=== PATIENT | female | born 1965 | race Caucasian/White ===

== ENCOUNTER 2017-10-03 10:36 | Emergency (ER) | payer OTHER ==
[~2017-10-03] VITALS: Ht 172.7 cm; Wt 63.5 kg
[~2017-10-03 10:36] MED LIST: ADVAIR 250-501 EACH INH; ALBUTEROL0.63 MG/1 INH/SOL; ALBUTEROL2.5 MG/3 M INH; BACTRIM DS TAB1 EACH PO; CHERATUSSIN AC118 M1 PO; IPRATROPIU0.2 MG/1 M INH; LEVAQUIN500 M1 PO; MONTELUKAST SOD10 M1 PO; PERCOCET 5-3251 EACH PO; PREDNISONE10 M2 PO; PREDNISONE20 M1 PO; QVAR0.08 MG/Ac; REGLAN10 MG PO; SYMBICORT 16010.2 GM INH; VENTOLIN HFA18 GM INH
[2017-10-03 10:43] VITALS: BP 133/84
--- NOTE | 2017-10-03 11:05 | ED SKIN/ALLERGY COMPLAINT ---
History of Present Illness General Chief Complaint: Suture Removal/Wound Recheck Stated Complaint: WOUNDCHECK Source: patient, old records Exam Limitations: no limitations Vital Signs & Intake/Output Vital Signs & Intake/Output Vital Signs Date Time Temp Pulse Resp B/P B/P Pulse O2 O2 Flow FiO2 Mean Ox Delivery Rate 10/03 1043 96.7 83 20 133/84 96 Room Air Allergies Coded Allergies: crab (Severe, ANAPHYLAXIS 06/03/17) Penicillins (Intermediate, RASH/HIVES 06/03/17) Reconcile Medications Albuterol Sulfate (Ventolin Hfa) 90 MCG HFA.AER.AD 2 PUF INH Q4-6 PRN PRN ASTHMA (Reported) Albuterol Sulfate 0.63 MG/3 ML VIAL.NEB 1 Vial INH/HENRY Q4 HRS NEEDED ASTHMA . Fluticasone/Salmeterol (Advair 250-50 Diskus) 250 MCG-50 MCG/DOSE BLST.W.DEV 1 PUF INH BID ASTHMA Ipratropium [place] 0.2 MG/ML (0.02 %) SOLUTION 2.5 ML INH DAILY ASTHMA . Montelukast Sodium 10 MG TABLET 1 TAB PO DAILY ASTHMA (Reported) Oxycodone HCl/Acetaminophen (Percocet 5-325 MG Tablet) 5 MG-325 MG TABLET 1 TAB PO BID PRN PAIN Sulfamethoxazole/Trimethoprim (Bactrim Ds Tablet) 800 MG-160 MG TABLET 1 TAB PO BID ABSCESS Triage Note: PT TO ED FOR WOUND CHECK TO LEFT CHEEK. PLACED HERE 2 DAYS AGO. Triage Nurses Notes Reviewed? yes Onset: Gradual Duration: week(s): Timing: recent history Severity: moderate Location: face HPI: 52yo female presents to ED for wound check of abscess on face. Patient was seen here two days ago, left check abscess was I&D, packing placed. Patient states she started antibiotics as prescribed. Packing fell out yesterday and large amount of purulent drainage from abscess came out. Patient has been applying warm compresses and dressing, some persistent drainage today 2. Patient reports improvement in pain, pain described as 4/10, formerly 10/10 prior to I&D. Patient also reports improvement in size of abscess. The patient denies fevers, chills, abdominal pain. Past History Travel History Traveled to [place] past 21 day No Medical History Any Pertinent Medical History? see below for history Neurological: NONE EENT: NONE Cardiovascular: NONE Respiratory: asthma Gastrointestinal: NONE Hepatic: NONE Renal: NONE Musculoskeletal: NONE Psychiatric: NONE Endocrine: NONE Blood Disorders: NONE Cancer(s): NONE PUBLIC SERVICES LIBRARIAN/Reproductive: NONE History of MRSA: No History of VRE: No History of CDIFF: No Surgical History Surgical History: CHOLESYSTECTOMY Psychosocial History Who do you live with Spouse What is your primary language French Tobacco Use: Quit >30 days ago ETOH Use: denies use Illicit Drug Use: denies illicit drug use Family History Hx Contributory? No Review of Systems Review of Systems Constitutional: Reports: no symptoms. EENTM: Reports: no symptoms. Respiratory: Reports: no symptoms. Cardiovascular: Reports: no symptoms. GI: Reports: no symptoms. Genitourinary: Reports: no symptoms. Musculoskeletal: Reports: no symptoms. Skin: Reports: see HPI. Neurological/Psychological: Reports: no symptoms. Hematologic/Endocrine: Reports: no symptoms. Immunologic/Allergic: Reports: no symptoms. All Other Systems: Reviewed and Negative Physical Exam Physical Exam General Appearance: well developed/nourished, no apparent distress, alert, awake Head: LEFT CHIN: 3x3cm area of erythema, tenderness, 0.5cm incision with mild purulent drainage, no fluctuance Eyes: Bilateral: normal appearance. Ears, Nose, Throat: normal pharynx, hearing grossly normal, no trismus Neck: normal inspection, supple, full range of motion Respiratory: no respiratory distress Back: normal inspection, normal range of motion Extremities: normal inspection, normal range of motion Neurologic/Psych: awake, alert, oriented x 3 Skin: 3x3cm area of erythema to left chin as described above Progress Differential Diagnosis: abscess/cellulitis, allergic reaction, contact dermatitis, urticaria Plan of Care: Small amount of purulent drainage expressed from abscess here in the ED. There is no fluctuance to abscess, no need for further I&D. Abscess appears to be improving compared to prior visit 2 days ago. Wound culture shows +MRSA sensitive to Bactrim. Patient to continue Bactrim and warm compresses. She will also apply topical triple antibiotic ointment. Patient will follow-up with her primary care doctor regarding this wound. SHe was given strict return precautions. With any worsening symptoms she will return to the emergency department. I offered to follow-up with patient for wound checks here in the emergency department however she is worried about insurance covered of multiple ER visits and prefers to follow-up with her primary care doctor. The patient agrees with the plan of care. Departure Departure Disposition: HOME OR SELF CARE Condition: Stable Clinical Impression Primary Impression: Abscess Secondary Impressions: Wound check, abscess Referrals: Nay Wu (PCP/Family) Additional Instructions: Begin applying triple antibiotic topically to area. Continue antibiotics, take full course of antibiotics. Apply dressings daily. Also continue warm compresses at least twice daily. With any worsening symptoms such as jaw pain/ stiffness, sore throat, dental pain, spreading rash please return to the emergency department. Otherwise follow-up with her primary care physician. Please note that there might be incidental findings in your evaluation that are unrelated to the current emergency department visit. Please notify your primary care doctor about this emergency department visit in order to obtain and review all of the testing performed so that these incidental findings can be monitored as needed. If you had an x-ray performed, please understand that some fractures may not be seen on the initial set of x-rays. If your symptoms persist you might need a repeat set of x-rays to check for such a fracture. If you had a laceration evaluated, please understand that foreign bodies such as glass or wood may not be visible to the naked eye or on plain x-rays. If the wound becomes red, swollen, increasingly more painful or if there is any drainage from the wound, please have it reevaluated by a physician for the possibility of a retained foreign body. If you're unable to follow up as outlined in the discharge instructions please return to the emergency department. Thank you for choosing the [facility] Emergency Department for your care. It was a pleasure to serve you today. Departure Forms: Customer Survey General Discharge Information
== END 2017-10-03 11:41 ==
LOC: ERH 10:36
DX: Z48.00 Encounter for change or removal of nonsurgical wound dressing (principal)